=== PATIENT | male | born 1990 | race Caucasian/White ===

== ENCOUNTER 2017-05-06 20:21 | Emergency (ER) | payer SELFPAY ==
[~2017-05-06] VITALS: Ht 182.9 cm; Wt 79.4 kg
[2017-05-06 20:48] LABS: BASO # 0.1 x10^3/uL (0.0-0.2); BASO % 1 % (0-3); EOS % 1 % (0-3); HEMATOCRIT 47.3 % (39.0-53.0); LYMPH # 2.7 x10^3/uL (1.0-4.8); LYMPH % 21 % (24-48); MEAN CORPUSCULAR HEMOGLOBIN 36 pg (25-35); MEAN CORPUSCULAR HGB CONC 34 g/dL (31-37); MEAN CORPUSCULAR VOLUME 106 fL (79-100); MONO % 5 % (0-9); NEUT % 73 % (31-73); PLATELET COUNT 269 x10^3/uL (140-400); RED BLOOD COUNT 4.48 x10^6/uL (4.30-5.70); RED CELL DISTRIBUTION WIDTH 12.5 % (11.5-14.5); WHITE BLOOD COUNT 12.6 x10^3/uL (4.0-11.0)
[2017-05-06] MEDS ORDERED: MULTIVIT INFUSN,ADULT 4,VIT K 10 ML, FOLIC ACID 1 MG, THIAMINE 100 MG in IV NORMAL SALI... IV SCH (21:00)
[2017-05-06] MEDS ORDERED: ZIPRASIDONE IM 20 MG VIAL. IM ONE (21:00)
[2017-05-06 21:04] LABS: CALCIUM 9.2 mg/dL (8.5-10.1); CREATININE 1.1 mg/dL (0.7-1.3); GFR 79.7; POTASSIUM 3.6 mmol/L (3.5-5.1)
[2017-05-06 21:10] LABS: BILIRUBIN,URINE NEGATIVE (NEG); GLUCOSE,URINE NEGATIVE (NEG); NITRITE,URINE NEGATIVE (NEG); PH,URINE 5.5; PROTEIN,URINE NEGATIVE (NEG-TRACE); UROBILINOGEN,URINE 0.2 mg/dL (0.2 mg/dL)
[2017-05-06 21:17] LABS: BARBITURATES NEG (NEG); BENZODIAZEPINES NEG (NEG); CANNABINOIDS POS (NEG); COCAINE NEG (NEG); METHADONE NEG (NEG); OPIATES NEG (NEG); PHENCYCLIDINE POS (NEG)
[2017-05-06 21:20] LABS: BACTERIA,URINE 0 /HPF (0-FEW); RBC,URINE 0 /HPF (0-2); SQUAMOUS EPITHELIAL CELL,UR FEW /LPF; WBC,URINE 0 /HPF (0-4)
[2017-05-06 22:30] VITALS: BP 132/60
--- NOTE | 2017-05-06 23:12 | RAD ---
Clinical Indication: Altered mental status Technique: Study is dated May 06, 2017. CT images of the head were obtained from the skull base to the vertex without IV contrast. There are no comparison studies available. One or more of the following individualized dose reduction techniques were utilized for this examination: 1. Automated exposure control 2. Adjustment of the mA and/or kV according to patient size 3. Use of iterative reconstruction technique Findings: The ventricles are normal in size and configuration. There is no hemorrhage, extraaxial collection, mass, or midline shift. There is no large vascular distribution acute infarct. The posterior fossa and brainstem are unremarkable. Orbits are normal. The included paranasal sinuses and mastoid air cells are clear. There is no skull fracture appreciated on bone level images. Impression: No acute intracranial findings. If further workup is required, consider MRI. Electronically signed by: Titus Dunlap MD (05/06/2017 11:09 PM) [facility]
--- NOTE | 2017-05-07 02:05 | ED.ADGEN ---
Past Medical History Past Medical History: No Pertinent History Past Surgical History: No Surgical History Alcohol Use: None Drug Use: None Adult General Chief Complaint Chief Complaint: ALTERED MENTAL STATUS HPI HPI Patient is a 26 year old [man, with no significant past oral history, who presents to the emergency department via EMS after being found lying in his neighbors lawn in a position. Patient was agitated and required restraining by the EMS crew en route to the emergency department. Patient is denying any ingestions or exposures, however EMS crew states that they were told the patient "might of been smoking wet". Patient denies any traumatic injury, is yelling and screaming at staff, a code mike was called upon arrival to the emergency department. Patient was placed 4. Restraints due to concern for staff and patient safety. Patient is yelling nonsensically, and refusing to answer questions. Review of Systems Review of Systems Constitutional: Denies fever or chills. [] Eyes: Denies change in visual acuity. [] HENT: Denies nasal congestion or sore throat. [] Respiratory: Denies cough or shortness of breath. [] Cardiovascular: Denies chest pain or edema. [] GI: Denies abdominal pain, nausea, vomiting, bloody stools or diarrhea. [] : Denies dysuria. [] Musculoskeletal: Denies back pain or joint pain. [] Integument: Denies rash. [] Neurologic: Denies headache, focal weakness or sensory changes. [] Endocrine: Denies polyuria or polydipsia. [] Lymphatic: Denies swollen glands. [] Psychiatric: Denies depression or anxiety. [] He is denying complaints, however evaluation is limited secondary to mental status, concern for substance ingestion. Current Medications Current Medications Current Medications Medications (Trade) Dose Ordered Sig/Raúl Start Time Stop Time Status Last Admin Dose Admin Lorazepam (Ativan) 1 mg 1X ONCE 05/06/17 22:00 05/06/17 22:01 DC 05/06/17 21:58 1 MG Multivitamins 10 ml/Folic Acid 1 mg/Thiamine HCl 100 mg/Sodium Chloride 1,011.2 ml @ 1,000 mls/ hr Q1H 05/06/17 21:00 05/06/17 21:01 DC 05/06/17 21:01 1,000 MLS/HR Ziprasidone (Geodon Im) 20 mg 1X ONCE 05/06/17 21:00 05/06/17 21:01 DC 05/06/17 21:08 20 MG Allergies Allergies Allergies Coded Allergies Type Severity Reaction Last Updated Verified amoxicillin Allergy Intermediate 09/20/15 Yes cephalexin Allergy Intermediate 09/20/15 Yes Physical Exam Physical Exam Constitutional: Well developed, well nourished, no acute distress, non-toxic appearance. Patient is yelling and speaking nonsensically to the staff, intermittently will answer questions appropriately. HENT: Normocephalic, atraumatic, bilateral external ears normal, oropharynx moist, no oral exudates, nose normal. [] Eyes: PERRLA, EOMI, conjunctiva normal, no discharge. [] Neck: Normal range of motion, no tenderness, supple, no stridor. [] Cardiovascular:Heart rate regular rhythm, no murmur, S1, S2, rubs or gallops. Tachycardic. [] Lungs & Thorax: Bilateral breath sounds clear to auscultation, no wheezing, rhonchi, rales. No chest or crepitus or tenderness. [] Abdomen: Bowel sounds normal, soft, no tenderness, no rebound, rigidity, no guarding, no masses, no pulsatile masses. [] Skin: Warm, dry, no erythema, no rash. [] Back: No tenderness, no CVA tenderness. [] Extremities: No tenderness, no cyanosis, no clubbing, ROM intact, no edema. Negative Homans sign. [] Neurologic: Initially, patient is agitated and refusing to answer questions, adamantly speaking in nonsensical terms, illegal sometimes answer questions appropriately. On reevaluation, patient is alert and oriented X 3, normal motor function, normal sensory function, no focal deficits noted. [] Psychologic: Patient agitated, refusing answer questions. On reevaluation patient is appropriate, with a normal affect. Current Patient Data Vital Signs Vital Signs Date Time Temp Pulse Resp B/P (MAP) Pulse Ox O2 Delivery O2 Flow Rate FiO2 05/06/17 22:30 90 132/60 (84) 94 Room Air 05/06/17 20:35 98.5 16 98.5 Lab Values Laboratory Tests Test 05/06/17 20:28 05/06/17 20:58 White Blood Count 12.6 x10^3/uL (4.0-11.0) H Red Blood Count 4.48 x10^6/uL (4.30-5.70) Hemoglobin 16.0 g/dL (13.0-17.5) Hematocrit 47.3 % (39.0-53.0) Mean Corpuscular Volume 106 fL (79-100) H Mean Corpuscular Hemoglobin 36 pg (25-35) H Mean Corpuscular Hemoglobin Concent 34 g/dL (31-37) Red Cell Distribution Width 12.5 % (11.5-14.5) Platelet Count 269 x10^3/uL (140-400) Neutrophils (%) (Auto) 73 % (31-73) Lymphocytes (%) (Auto) 21 % (24-48) L Monocytes (%) (Auto) 5 % (0-9) Eosinophils (%) (Auto) 1 % (0-3) Basophils (%) (Auto) 1 % (0-3) Neutrophils # (Auto) 9.2 x10^3uL (1.8-7.7) H Lymphocytes # (Auto) 2.7 x10^3/uL (1.0-4.8) Monocytes # (Auto) 0.6 x10^3/uL (0.0-1.1) Eosinophils # (Auto) 0.1 x10^3/uL (0.0-0.7) Basophils # (Auto) 0.1 x10^3/uL (0.0-0.2) Sodium Level 142 mmol/L (136-145) Potassium Level 3.6 mmol/L (3.5-5.1) Chloride Level 105 mmol/L (98-107) Carbon Dioxide Level 23 mmol/L (21-32) Anion Gap 14 (6-14) Blood Urea Nitrogen 19 mg/dL (8-26) Creatinine 1.1 mg/dL (0.7-1.3) Estimated GFR (Cockcroft-Gault) 79.7 Glucose Level 110 mg/dL (70-99) H Calcium Level 9.2 mg/dL (8.5-10.1) Myoglobin 41 ng/mL (16-96) Ethyl Alcohol Level 73 mg/dL (0-10) H Urine Collection Type Unknown Urine Color Yellow Urine Clarity Cloudy Urine pH 5.5 Urine Specific [place] <=1.005 Urine Protein Negative mg/dL (NEG-TRACE) Urine Glucose (UA) Negative mg/dL (NEG) Urine Ketones (Stick) Negative mg/dL (NEG) Urine Blood Negative (NEG) Urine Nitrite Negative (NEG) Urine Bilirubin Negative (NEG) Urine Urobilinogen Dipstick 0.2 mg/dL (0.2 mg/dL) Urine Leukocyte Esterase Negative (NEG) Urine RBC 0 /HPF (0-2) Urine WBC 0 /HPF (0-4) Urine Squamous Epithelial Cells Few /LPF Urine Bacteria 0 /HPF (0-FEW) Urine Mucus Slight /LPF Urine Opiates Screen Neg (NEG) Urine Methadone Screen Neg (NEG) Urine Barbiturates Neg (NEG) Urine Phencyclidine Screen Pos (NEG) Urine Amphetamine/Methamphetamine Neg (NEG) Urine Benzodiazepines Screen Neg (NEG) Urine Cocaine Screen Neg (NEG) Urine Cannabinoids Screen Pos (NEG) Urine Ethyl Alcohol Pos (NEG) Laboratory Tests 05/06/17 20:28 Laboratory Tests 05/06/17 20:28 EKG EKG EC: Sinus tachycardia, heart rate 180 beats are minute, upright axis, QTC of 408, MA 108, QRS of 92, patient with mild baseline artifact noted, mild tachycardia, no evidence of ST elevations or depressions, as interpreted by me.[ ] Radiology/Procedures Radiology/Procedures [][address] [address] IMAGING REPORT Signed PATIENT: REKHA SOLORIO ACCOUNT: [id number] : 1990 LOCATION: ER AGE: 26 SEX: M EXAM STATUS: REG ER ORD. PHYSICIAN: MARIE PERAZA DO REASON: AMS PROCEDURE: CT HEAD WO CONTRAST Clinical Indication: Altered mental status Technique: Study is dated May 06, 2017. CT images of the head were obtained from the skull base to the vertex without IV contrast. There are no comparison studies available. One or more of the following individualized dose reduction techniques were utilized for this examination: 1. Automated exposure control 2. Adjustment of the mA and/or kV according to patient size 3. Use of iterative reconstruction technique Findings: The ventricles are normal in size and configuration. There is no hemorrhage, extraaxial collection, mass, or midline shift. There is no large vascular distribution acute infarct. The posterior fossa and brainstem are unremarkable. Orbits are normal. The included paranasal sinuses and mastoid air cells are clear. There is no skull fracture appreciated on bone level images. Impression: No acute intracranial findings. If further workup is required, consider MRI. Electronically signed by: Titus Dunlap MD (05/06/2017 11:09 PM) [facility] DICTATED and SIGNED BY: TITUS DUNLAP MD DATE: 05/06/175 CC: MARIE PERAZA DO; NO PCP ~ Course & Med Decision Making Course & Med Decision Making Pertinent Labs and Imaging studies reviewed. (See chart for details) Code mckeon called her stated, patient placed for restraints, received Geodon, and Ativan the ED due to agitation. Did also mental status with agitation, and unclear etiology, CT of the head obtained was unremarkable. On reevaluation, patient is now calm and cooperative, in no 4. He does apologize for his previous behavior, he is denying any ingestions initially, but UDS is positive for phencyclidine and marijuana. Patient on reevaluation admits to using these substances, and again apologizes for his behavior. Patient ambulating in the ED without issue. Alcohol level of 73, no other concerning findings identified laboratory studies or imaging. Patient did contact family member for right home. Did discuss with patient the ill effects of illicit substances can cause morbidity or mortality. Patient voices understanding and agreement with these precautions, discharged home with family in stable condition. Dragon Disclaimer Dragon Disclaimer This electronic medical record was generated, in whole or in part, using a voice recognition dictation system. Departure Impression: Primary Impression: PCP intoxication Additional Impression: Marijuana abuse Disposition: HOME, SELF-CARE Condition: IMPROVED Problem Qualifiers MARIE PERAZA DO May 07, 2017 02:05
--- NOTE | 2017-05-07 06:29 | EKG ---
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
== END 2017-05-06 23:44 | disposition home or self-care (01) ==
LOC: ER 20:21
DX: T40.995A Adverse effect of other psychodysleptics [hallucinogens], initial encounter (principal); F12.10 Cannabis abuse, uncomplicated; Z88.1 Allergy status to other antibiotic agents; Y92.89 Other specified places as the place of occurrence of the external cause
CPT/HCPCS: 36415; 51701; 70450; 80048; 80307; 81001; 83874; 85025; 93005; 96365; 96372; 96375; 99285; G0480; J2060; J3486; J7030; G0479

== ENCOUNTER 2018-01-16 23:12 | Emergency (ER) | payer SELFPAY | END 2018-01-16 23:35 | disposition home or self-care (01) | LOC: ER 23:35 | DX: F19.10 Other psychoactive substance abuse, uncomplicated (principal); Z88.1 Allergy status to other antibiotic agents | CPT/HCPCS: 99283 ==

== ENCOUNTER 2019-05-16 20:52 | Emergency (ER) | payer SELFPAY ==
[~2019-05-16] VITALS: Ht 193 cm; Wt 81.6 kg
[2019-05-16 20:52] VITALS: BP 144/84
[2019-05-16 21:20] LABS: BASO # 0.1 x10^3/uL (0.0-0.2); BASO % 1 % (0-3); EOS # 0.7 x10^3/uL (0.0-0.7); EOS % 9 % (0-3); HEMATOCRIT 42.4 % (39.0-53.0); HEMOGLOBIN 14.9 g/dL (13.0-17.5); LYMPH # 2.5 x10^3/uL (1.0-4.8); LYMPH % 30 % (24-48); MEAN CORPUSCULAR HEMOGLOBIN 35 pg (25-35); MEAN CORPUSCULAR HGB CONC 35 g/dL (31-37); MEAN CORPUSCULAR VOLUME 100 fL (79-100); MONO # 0.5 x10^3/uL (0.0-1.1); MONO % 6 % (0-9); NEUT # 4.7 x10^3/uL (1.8-7.7); NEUT % 55 % (31-73); PLATELET COUNT 359 x10^3/uL (140-400); RED BLOOD COUNT 4.26 x10^6/uL (4.30-5.70); WHITE BLOOD COUNT 8.5 x10^3/uL (4.0-11.0)
[2019-05-16 21:25] LABS: BILIRUBIN,URINE NEGATIVE (NEG); CLARITY,URINE CLEAR; COLOR,URINE YELLOW; NITRITE,URINE NEGATIVE (NEG); PH,URINE 5.5; PROTEIN,URINE NEGATIVE (NEG-TRACE)
[2019-05-16 21:30] LABS: CALCIUM 9.8 mg/dL (8.5-10.1); CREATININE 1.1 mg/dL (0.7-1.3); GFR 78.6; POTASSIUM 4.1 mmol/L (3.5-5.1)
[2019-05-16] MEDS ORDERED: IV NORMAL SALINE 1000ML BAG 1,000 ML IV ONE (21:30)
[2019-05-16 21:31] LABS: BACTERIA,URINE 0 /HPF (0-FEW); BARBITURATES NEG (NEG); BENZODIAZEPINES NEG (NEG); CANNABINOIDS POS (NEG); COCAINE NEG (NEG); HYALINE CASTS, URINE FEW /HPF; METHADONE NEG (NEG); OPIATES NEG (NEG); PHENCYCLIDINE POS (NEG); RBC,URINE 0 /HPF (0-2); SQUAMOUS EPITHELIAL CELL,UR OCC /LPF
[2019-05-16 21:33] LABS: ACETAMIN < 2.0 mcg/ml (10-30); ETHANOL < 10 mg/dL (0-10)
[2019-05-16 21:35] LABS: AMPHETAMINE/METHAMPHETAMINE NEG (NEG)
[2019-05-16 21:35] LABS: ALBUMIN 4.3 g/dL (3.4-5.0); ALBUMIN/GLOBULIN RATIO 1.1 (1.0-1.7); TOTAL BILIRUBIN 0.3 mg/dL (0.2-1.0); TOTAL PROTEIN 8.1 g/dL (6.4-8.2)
--- NOTE | 2019-05-16 21:43 | RAD ---
Exam: CT head INDICATION: forehead contusion TECHNIQUE: Sequential axial images through the head were obtained without the administration of IV contrast. Comparisons: 05/06/2017 FINDINGS: No focal parenchymal lesion or hemorrhage is identified. There is no midline shift or sulcal effacement. No acute vascular territory infarction is identified. Villarreal-white distinction is preserved. The ventricular system is within normal limits without compression hydrocephalus. The basal cisterns are well maintained. Mild extracranial soft tissue scalp contusion at the frontal region. The visualized portions of the paranasal sinuses and mastoid air cells are well-pneumatized. No acute fractures. IMPRESSION: No acute intracranial abnormality. Exposure: One or more of the following in the visualized dose reduction techniques were utilized for this examination: 1. Automated exposure control 2. Adjustment of the MA and/or KV according to patient size Use of iterative of reconstructive technique Electronically signed by: Cindy White MD (05/16/2019 9:40 PM) [facility]
--- NOTE | 2019-05-16 22:49 | PHYS DOC ---
Past Medical History Past Medical History: No Pertinent History (NORAH ETIENNE APRN) Past Surgical History: No Surgical History (NORAH ETIENNE APRN) Alcohol Use: Occasionally Drug Use: None (NORAH ETIENNE APRN) Adult General Chief Complaint Chief Complaint: DRUG ABUSE HPI HPI Patient is a 28 year old 28-year-old male patient who presents to the ED today via EMS, EMS report the local [employer] flight reservations manager called them because patient was found shooting up some drugs in [employer] bathroom. Patient appears high. He is not giving us much information due to his mentation. (NORAH ETIENNE APRN) Review of Systems Review of Systems Constitutional: Denies fever or chills [] Eyes: Denies change in visual acuity, redness, or eye pain [] HENT: Denies nasal congestion or sore throat [] Respiratory: Denies cough or shortness of breath [] Cardiovascular: No additional information not addressed in HPI [] GI: Denies abdominal pain, nausea, vomiting, bloody stools or diarrhea [] : Denies dysuria or hematuria [] Musculoskeletal: Denies back pain or joint pain [] Integument: Denies rash or skin lesions [] Neurologic: Denies headache, focal weakness or sensory changes [] Reports: Drug use All other systems were reviewed and found to be within normal limits, except as documented in this note. (NORAH ETIENNE APRN) Current Medications Current Medications Current Medications Medications (Trade) Dose Ordered Sig/Raúl Start Time Stop Time Status Last Admin Dose Admin Sodium Chloride 1,000 ml @ 1,000 mls/hr 1X ONCE 05/16/19 21:30 05/16/19 22:29 DC 05/16/19 21:30 1,000 MLS/HR (REKHA IZAGUIRRE DO) Allergies Allergies Allergies Coded Allergies Type Severity Reaction Last Updated Verified amoxicillin Allergy Intermediate 09/20/15 Yes cephalexin Allergy Intermediate 09/20/15 Yes (REKHA IZAGUIRRE DO) Physical Exam Physical Exam Constitutional: Well developed, well nourished, no acute distress, non-toxic appearance. [] HENT: Normocephalic, atraumatic, bilateral external ears normal, oropharynx moist, no oral exudates, nose normal. [] Eyes: PERRLA, EOMI, subconjunctival hematoma noted on the left lateral conjunctiva, right eye appears normal, no discharge. [] Neck: Normal range of motion, no tenderness, supple, no stridor. [] Cardiovascular:Heart rate regular rhythm, no murmur [] Lungs & Thorax: Bilateral breath sounds clear to auscultation [] Abdomen: Bowel sounds normal, soft, no tenderness, no masses, no pulsatile masses. [] Skin: Warm, dry, no erythema, no rash. Left upper eyebrow with a scabbed up region that appears to be a laceration site with stitches removed. Back: No tenderness, no CVA tenderness. [] Extremities: No tenderness, no cyanosis, no clubbing, ROM intact, no edema. [] Neurologic: Alert and oriented X 1, normal motor function, normal sensory function, no focal deficits noted. [] Psychologic: Flat affect, appears intoxicated (MUTUNGA,NORAH TRANSPORTATION DISPATCHER) Current Patient Data Vital Signs Vital Signs Date Time Temp Pulse Resp B/P (MAP) Pulse Ox O2 Delivery O2 Flow Rate FiO2 05/16/19 20:52 97.8 116 14 144/84 (104) 99 Room Air 97.8 (IZAGUIRRE,[employer] DO) Lab Values Laboratory Tests Test 05/16/19 21:15 05/16/19 21:16 White Blood Count 8.5 x10^3/uL (4.0-11.0) Red Blood Count 4.26 x10^6/uL (4.30-5.70) L Hemoglobin 14.9 g/dL (13.0-17.5) Hematocrit 42.4 % (39.0-53.0) Mean Corpuscular Volume 100 fL (79-100) Mean Corpuscular Hemoglobin 35 pg (25-35) Mean Corpuscular Hemoglobin Concent 35 g/dL (31-37) Red Cell Distribution Width 13.0 % (11.5-14.5) Platelet Count 359 x10^3/uL (140-400) Neutrophils (%) (Auto) 55 % (31-73) Lymphocytes (%) (Auto) 30 % (24-48) Monocytes (%) (Auto) 6 % (0-9) Eosinophils (%) (Auto) 9 % (0-3) H Basophils (%) (Auto) 1 % (0-3) Neutrophils # (Auto) 4.7 x10^3/uL (1.8-7.7) Lymphocytes # (Auto) 2.5 x10^3/uL (1.0-4.8) Monocytes # (Auto) 0.5 x10^3/uL (0.0-1.1) Eosinophils # (Auto) 0.7 x10^3/uL (0.0-0.7) Basophils # (Auto) 0.1 x10^3/uL (0.0-0.2) Sodium Level 145 mmol/L (136-145) Potassium Level 4.1 mmol/L (3.5-5.1) Chloride Level 106 mmol/L (98-107) Carbon Dioxide Level 27 mmol/L (21-32) Anion Gap 12 (6-14) Blood Urea Nitrogen 14 mg/dL (8-26) Creatinine 1.1 mg/dL (0.7-1.3) Estimated GFR (Cockcroft-Gault) 78.6 BUN/Creatinine Ratio 13 (6-20) Glucose Level 113 mg/dL (70-99) H Calcium Level 9.8 mg/dL (8.5-10.1) Magnesium Level 2.0 mg/dL (1.8-2.4) Total Bilirubin 0.3 mg/dL (0.2-1.0) Aspartate Amino Transferase (AST) 21 U/L (15-37) Alanine Aminotransferase (ALT) 32 U/L (16-63) Alkaline Phosphatase 96 U/L (46-116) Total Protein 8.1 g/dL (6.4-8.2) Albumin 4.3 g/dL (3.4-5.0) Albumin/Globulin Ratio 1.1 (1.0-1.7) Lipase 95 U/L (73-393) Salicylates Level 3.0 mg/dL (2.8-20.0) Salicylate Last Dose Date Unk Salicylate Last Dose Time Unk Acetaminophen Level < 2.0 mcg/ml (10-30) L Acetaminophen Last Dose Date Unk Acetaminophen Last Dose Time Unk Ethyl Alcohol Level < 10 mg/dL (0-10) Urine Collection Type Unknown Urine Color Yellow Urine Clarity Clear Urine pH 5.5 Urine Specific [place] 1.025 Urine Protein Negative mg/dL (NEG-TRACE) Urine Glucose (UA) Negative mg/dL (NEG) Urine Ketones (Stick) Negative mg/dL (NEG) Urine Blood Negative (NEG) Urine Nitrite Negative (NEG) Urine Bilirubin Negative (NEG) Urine Urobilinogen Dipstick 1.0 mg/dL (0.2 mg/dL) Urine Leukocyte Esterase Small (NEG) Urine RBC 0 /HPF (0-2) Urine WBC 11-20 /HPF (0-4) Urine Squamous Epithelial Cells Occ /LPF Urine Bacteria 0 /HPF (0-FEW) Urine Hyaline Casts Few /HPF Urine Mucus Mod /LPF Urine Opiates Screen Neg (NEG) Urine Methadone Screen Neg (NEG) Urine Barbiturates Neg (NEG) Urine Phencyclidine Screen Pos (NEG) Urine Amphetamine/Methamphetamine Neg (NEG) Urine Benzodiazepines Screen Neg (NEG) Urine Cocaine Screen Neg (NEG) Urine Cannabinoids Screen Pos (NEG) Urine Ethyl Alcohol Pos (NEG) Laboratory Tests 05/16/19 21:15 Laboratory Tests 05/16/19 21:15 (REKHA IZAGUIRRE DO) EKG EKG [] (NORAH ETIENNE APRN) Radiology/Procedures Radiology/Procedures []PROCEDURE: CT HEAD WO CONTRAST Exam: CT head INDICATION: forehead contusion TECHNIQUE: Sequential axial images through the head were obtained without the administration of IV contrast. Comparisons: 05/06/2017 FINDINGS: No focal parenchymal lesion or hemorrhage is identified. There is no midline shift or sulcal effacement. No acute vascular territory infarction is identified. Villarreal-white distinction is preserved. The ventricular system is within normal limits without compression hydrocephalus. The basal cisterns are well maintained. Mild extracranial soft tissue scalp contusion at the frontal region. The visualized portions of the paranasal sinuses and mastoid air cells are well-pneumatized. No acute fractures. IMPRESSION: No acute intracranial abnormality. Exposure: One or more of the following in the visualized dose reduction techniques were utilized for this examination: 1. Automated exposure control 2. Adjustment of the MA and/or KV according to patient size Use of iterative of reconstructive technique Electronically signed by: Cindy Briggs MD (05/16/2019 9:40 PM) [facility] DICTATED and SIGNED BY: CINDY BRIGGS MD DATE: 05/16/192139 (NORAH ETIENNE APRN) Course & Med Decision Making Course & Med Decision Making Pertinent Labs and Imaging studies reviewed. (See chart for details) This is a 28-year-old male patient who presents to the ED today from the low, no nodes were he was found injecting himself with some drugs. He arrives in the ED appearing intoxicated. Positive for alcohol, alcohol level less than 10, positive for PCP and marijuana. CT of the head is negative, CBC and CMP would not acute findings. Patient was given IV fluid 1 L. He is currently awake alert and oriented and requesting to be discharged. He states he left his bicycle at [employer]. He is requesting to go get his bicycle and go home. I called the PAT team unfortunately patient refused help. He was given a cab voucher. (NORAH ETIENNE APRN) Dragon Disclaimer Dragon Disclaimer This electronic medical record was generated, in whole or in part, using a voice recognition dictation system. (NORAH ETIENNE APRN) Departure Departure Impression: Primary Impression: Marijuana abuse Additional Impressions: Alcohol intoxication PCP intoxication Disposition: HOME, SELF-CARE Condition: STABLE Referrals: NO PCP (PCP) [facility] Patient Instructions: Drug Abuse and Addiction-[facility] Additional Instructions: You were evaluated in the emergency room and noted to have used PCP, marijuana and alcohol. Consider getting help [facility] Attending Signature Attending Signature I have reviewed the PA/MACHINE STAMPER's note and plan of care. I was available for consultation as needed during the patient's visit in the emergency department. I agree with the clinical impression, plan, and disposition. (REKHA IZAGUIRRE DO) Problem Qualifiers Additional Impressions: Alcohol intoxication Complication of substance-induced condition: with unspecified complication Qualified Codes: F10.929 - Alcohol use, unspecified with intoxication, unspecified PCP intoxication Complication of substance-induced condition: with unspecified complication Qualified Codes: F16.929 - Hallucinogen use, unspecified with intoxication, unspecified NORAH ETIENNE APRN May 16, 2019 22:49 REKHA IZAGUIRRE DO May 17, 2019 00:33
== END 2019-05-16 22:58 | disposition home or self-care (01) ==
LOC: ER 20:52
DX: F12.10 Cannabis abuse, uncomplicated (principal); T40.995A Adverse effect of other psychodysleptics [hallucinogens], initial encounter; F10.129 Alcohol abuse with intoxication, unspecified; Y90.0 Blood alcohol level of less than 20 mg/100 ml; Y92.89 Other specified places as the place of occurrence of the external cause
CPT/HCPCS: 36415; 70450; 80053; 80307; 80329; 81001; 83690; 83735; 85025; 99285; G0480; J7030

== ENCOUNTER 2019-05-18 21:48 | Emergency (ER) | payer SELFPAY ==
[~2019-05-18] VITALS: Ht 193 cm; Wt 81.6 kg
[2019-05-18 21:48] VITALS: BP 153/88
--- NOTE | 2019-05-18 22:08 | PHYS DOC ---
Past Medical History Past Medical History: No Pertinent History Additional Past Medical Histor: substance abuse Past Surgical History: No Surgical History Alcohol Use: Occasionally Drug Use: None Adult General Chief Complaint Chief Complaint: ALCOHOL INTOXICATION HPI HPI 28-year-old male who is unknown drug abuser presents acting unusually next to a convenience store. 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 Patient admits to taking drugs. He states he is nothing wrong with him and he wants to go home. He denies any suicidal or homicidal ideation.[] Review of Systems Review of Systems Constitutional: Denies fever or chills [] Eyes: Denies change in visual acuity, redness, or eye pain [] HENT: Denies nasal congestion or sore throat [] Respiratory: Denies cough or shortness of breath [] Cardiovascular: No additional information not addressed in HPI [] GI: Denies abdominal pain, nausea, vomiting, bloody stools or diarrhea [] : Denies dysuria or hematuria [] Musculoskeletal: Denies back pain or joint pain [] Integument: Denies rash or skin lesions [] Neurologic: Denies headache, focal weakness or sensory changes [] Endocrine: Denies polyuria or polydipsia [] All other systems were reviewed and found to be within normal limits, except as documented in this note. Allergies Allergies Allergies Coded Allergies Type Severity Reaction Last Updated Verified amoxicillin Allergy Intermediate 09/20/15 Yes cephalexin Allergy Intermediate 09/20/15 Yes Physical Exam Physical Exam Constitutional: Well developed, well nourished, no acute distress but does appear intoxicated. [] HENT: Normocephalic, atraumatic, bilateral external ears normal, oropharynx moist, no oral exudates, nose normal. [] Eyes: PERRLA, EOMI, conjunctiva normal, no discharge. [] Neck: Normal range of motion, no tenderness, supple, no stridor. [] Cardiovascular:Heart rate regular rhythm, no murmur [] Lungs & Thorax: Bilateral breath sounds clear to auscultation [] Abdomen: Bowel sounds normal, soft, no tenderness, no masses, no pulsatile masses. [] Skin: Warm, dry, no erythema, no rash. [] Back: No tenderness, no CVA tenderness. [] Extremities: No tenderness, no cyanosis, no clubbing, ROM intact, no edema. [] Neurologic: Alert and oriented X 3, normal motor function, normal sensory function, no focal deficits noted. [] Psychologic: Flat affect but not suicidal or homicidal. [] EKG EKG [] Radiology/Procedures Radiology/Procedures [] Course & Med Decision Making Course & Med Decision Making Pertinent Labs and Imaging studies reviewed. (See chart for details) [] Dragon Disclaimer Dragon Disclaimer This electronic medical record was generated, in whole or in part, using a voice recognition dictation system. Departure Departure Impression: Primary Impression: Substance abuse Disposition: 01 HOME, SELF-CARE Condition: STABLE Referrals: NO PCP (PCP) Patient Instructions: Substance Abuse-Brief Additional Instructions: Return to the emergency department with any new or concerning symptoms DANIEL PAZ DO May 18, 2019 22:08
== END 2019-05-18 22:30 | disposition home or self-care (01) ==
LOC: ER 21:48
DX: F19.10 Other psychoactive substance abuse, uncomplicated (principal); Z88.1 Allergy status to other antibiotic agents
CPT/HCPCS: 99283